=== PATIENT | male | born 1950 | race Caucasian/White ===

== ENCOUNTER 2023-06-07 15:51 | Emergency (ER) | payer MEDICARE, OTHER ==
[2023-06-07 16:27] LABS: BASOPHILS # (AUTO) 0.1 10^3/uL (0.0-0.1); BASOPHILS % (AUTO) 0.9 %; EOSINOPHILS # (AUTO) 0.1 10^3/uL (0.0-0.7); EOSINOPHILS % (AUTO) 1.8 %; HCT - HEMATOCRIT 41.3 % (42.0-52.0); HGB - HEMOGLOBIN 13.7 g/dL (14.0-18.0); LYMPHOCYTES # (AUTO) 1.8 10^3/uL (1.5-3.5); LYMPHOCYTES % (AUTO) 33.2 %; MEAN CORPUSCULAR HEMOGLOBIN 29.7 pg (27.0-31.0); MEAN CORPUSCULAR HGB CONC 33.2 g/dL (32.0-36.0); MEAN CORPUSCULAR VOLUME 89.4 fL (80.0-94.0); MEAN PLATELET VOLUME 9.3 fL (7.4-11.4); MONOCYTES # (AUTO) 0.7 10^3/uL (0.0-1.0); MONOCYTES % (AUTO) 12.5 %; NEUTROPHILS # (AUTO) 2.8 10^3/uL (1.5-6.6); NEUTROPHILS % (AUTO) 51.4 %; PLT - PLATELET COUNT 242 10^3/uL (130-450); RED BLOOD COUNT 4.62 10^6/uL (4.70-6.10); RED CELL DISTRIBUTION WIDTH 12.2 % (12.0-15.0); WHITE BLOOD COUNT 5.5 x10^3/uL (4.8-10.8)
--- NOTE | 2023-06-07 16:39 | XRAY Report ---
PROCEDURE: Chest 1 View X-Ray INDICATIONS: Chest pain TECHNIQUE: One view of the chest was acquired. COMPARISON: None. FINDINGS: Surgical changes and devices: None. Lungs and pleura: No pleural effusions or pneumothorax. Lungs are clear. Mediastinum: Mediastinal contours appear normal. Heart size is normal. Bones and chest wall: No suspicious bony lesions. Overlying soft tissues appear unremarkable. IMPRESSION: No acute cardiopulmonary process. Reviewed by: Armond Wu MD on 06/07/2023 4:37 PM PDT Approved by: Armond Wu MD on 06/07/2023 4:37 PM PDT Station ID: [id number]
[2023-06-07 16:42] LABS: ALBUMIN 3.8 g/dL (3.2-5.5); ALBUMIN/GLOBULIN RATIO 1.2 (1.0-2.2); BILIRUBIN,TOTAL 0.5 mg/dL (0.2-1.0); CALCIUM 8.9 mg/dL (8.5-10.3); CREATININE 0.9 mg/dL (0.6-1.2); POTASSIUM 4.1 mmol/L (3.5-5.0); TOTAL PROTEIN 7.1 g/dL (6.7-8.2)
--- NOTE | 2023-06-07 18:30 | ED Physician Documentation ---
PD HPI CHEST PAIN - Stated complaint Stated Complaint: CHEST PX - Chief complaint Chief Complaint: Cardiac - History obtained from History obtained from: Patient - History of Present Illness Timing - onset: How many weeks ago (has had chest pains intermittently over 3-4 weeks. These have been more consistent the past couple of days. Nonexertional. Not related to eating. 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 He had COVID again 2 months ago.) Timing - onset during: Rest Timing - details: Waxing and waning Quality: Pressure, Aching Location: Substernal, Left chest Associated symptoms: Feeling faint / dizzy. 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 denies: Palpitations, Pedal edema, Calf pain Respiratory: denies: Cough, Wheezing GI: denies: Abdominal Pain PD PAST MEDICAL HISTORY - Past Medical History Respiratory: None Neuro: None Endocrine/Autoimmune: None - Allergies Allergies/Adverse Reactions: Allergies Allergy/AdvReac Type Severity Reaction Status Date / Time No Known Drug Allergies Allergy Verified 06/07/23 16:14 PD ED PE NORMAL - Vitals Vital signs reviewed: Yes - General General: Alert and oriented X 3, No acute distress, Well developed/nourished - Neck Neck: Supple, no meningeal sign, No adenopathy - Cardiac Cardiac: RRR, No murmur, No rub - Respiratory Respiratory: No respiratory distress, Clear bilaterally, Other (some chestwall tenderness left parasternal and pectoral area. No rashh nor skin sores. ) - Abdomen Abdomen: Soft, Non tender - Derm Derm: Normal color, Warm and dry - Extremities Extremities: Normal ROM s pain, No edema, No calf tenderness / cord Results - Vitals Vitals: Oxygen O2 Source Room air - EKG (time done) 16:01 EKG releavant findings:: EKG personally interpreted by author of this note. Relevant findings are: Rate: Rate (enter#) (66) Rhythm: NSR Grethel: Normal Intervals: Normal MD QRS: Normal, LVH (mild with anterior repol changes) Ischemia: No: ST elevation c/w ischemia - Labs Labs: Laboratory Tests 06/07/23 06/07/23 06/07/23 16:21 16:21 16:21 WBC 5.5 RBC 4.62 L Hgb 13.7 L Hct 41.3 L MCV 89.4 MCH 29.7 MCHC 33.2 RDW 12.2 Plt Count 242 MPV 9.3 Neut # (Auto) 2.8 Lymph # (Auto) 1.8 [place] # (Auto) 0.7 Eos # (Auto) 0.1 Baso # (Auto) 0.1 Absolute Nucleated RBC 0.00 Nucleated RBC % 0.0 Sodium 141 Potassium 4.1 Chloride 109 Carbon Dioxide 29 Anion Gap 3.0 L BUN 15 Creatinine 0.9 Estimated GFR (MDRD) 83 L Glucose 104 H Calcium 8.9 Total Bilirubin 0.5 AST 21 ALT 16 Alkaline Phosphatase 78 Troponin I High Sens < 2.3 L Total Protein 7.1 Albumin 3.8 Globulin 3.3 Albumin/Globulin Ratio 1.2 Lipase 46 - Rads (name of study) chest xray Relevant Findings:: Prelim report reviewed, EMP independent interpretation of test (no acute cardiopulmonary process.), See rad report PD Medical Decision Making - ED course Complexity details: considered differential, d/w patient ED course: He states he has a history of sounds like pericarditis post COVID a year or so ago. He had COVID again in 2 months ago and has been having some intermittent aching pains in the chest over the last couple of weeks. No shortness of breath, lightheadedness, near-syncope nor peripheral edema. This discomfort is been more consistent the last few days. We did do EKG, chest x-ray and blood tests without there being any signs of effusion, infiltrates or heart strain. No anemia. EKG shows nonspecific anterior lead ST changes consistent with early LVH. No ischemic appearing changes. Troponin is negative which should be elevated to some degree if he was having ischemic symptoms for 2 or 3 days. He does have some tenderness in the chest wall and some discomfort increasing with movement. I think it sounds musculoskeletal. This will be treated with NSAIDs and as we discussed, I would be reasonable treatment even if there were mild pericardial inflammation. Departure - Departure Disposition: 01 Home, Self Care Clinical Impression: Chest pain of unknown etiology Condition: Stable Record reviewed to determine appropriate education?: Yes Instructions: ED Chest Pain Atypical Unkn Cause Comments: Your EKG, chest x-ray, blood tests are normal without any signs of fluid in the lungs, congestive failure, heart attack, pneumonia, anemia, electrolyte problems. It is unclear the cause of your chest pain but it sounds more likely to be musculoskeletal or inflammatory. On exam and EKG I do not get any indications of pericarditis or fluid around the heart. If there were a mild amount of that, it would be treated with just anti- inflammatories. Again I do not get the sense that that is occurring and would treat mostly as musculoskeletal pain with anti-inflammatories anyway. I would suggest ibuprofen 600 mg twice daily with food for the next 7 to 10 days. Follow-up or recheck if worsening symptoms or any concurrent new symptoms (cough, fever, short of breath, leg edema, etc.). Discharge Date/Time: 06/07/23 18:59
[2023-06-07 19:02] VITALS: BP 139/87
== END 2023-06-07 18:59 | disposition home or self-care (01) ==
LOC: ED 15:51
DX: R07.9 Chest pain, unspecified (principal)
CPT/HCPCS: 36415; 80053; 83690; 84484; 85025; 93005; 99283; 99284